=== PATIENT | male | born 1990 | race Caucasian/White ===

== ENCOUNTER 2017-08-20 11:25 | Emergency (ER) | payer SELFPAY ==
[~2017-08-20] VITALS: Ht 180.3 cm; Wt 79.4 kg
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
--- NOTE | 2017-08-20 13:25 | NUR ---
VAMSI JACKSON AT FOR WOUND CARE.
--- NOTE | 2017-08-20 13:30 | NUR ---
Patient discharged to home in stable condition. Written and verbal after care instructions given. Patient verbalizes understanding of instruction.
[2017-08-20 13:41] VITALS: BP 128/85
== END 2017-08-20 13:42 | disposition home or self-care (01) ==
LOC: ER 11:27
DX: S09.8XXA Other specified injuries of head, initial encounter (principal); Y04.0XXA Assault by unarmed brawl or fight, initial encounter; Y93.89 Activity, other specified; Y92.89 Other specified places as the place of occurrence of the external cause; Y99.8 Other external cause status
CPT/HCPCS: 70450-TC; 70486-TC; 72125-TC; A4606; A6403; Z7610